=== PATIENT | female | born 1975 | race African-American/Black ===

== ENCOUNTER 2016-12-01 11:07 | Emergency (ER) | payer BC ==
[2016-12-01 11:15] VITALS: TEMP 98.4; BMI 29.5
--- NOTE | 2016-12-01 11:30 | EDPRACDOC ---
[id number] Provider: 12/01/16 11:20 Information Source: Patient Mode of Arrival: Car Home Medications: Home Medications Lisinopril [Prinivil, Zestril] 5 mg PO DAILY 02/09/13 Aspirin [Aspirin EC] 81 mg PO DAILY 12/01/16 Allergies/Adverse Reactions: Allergies Allergy/AdvReac Type Severity Reaction Status Date / Time No Known Allergies Allergy Verified 12/01/16 11:15 - History of Present Illness Onset: 2 DAYS HPI: LEFT SIDED CHEST PAIN, 2 DAYS, WORSE WITH BREATHING. PAIN 5/10 WITH INSPIRATION. NONSMOKER. PT HAS HTN. TREATING CHOL WITH DIET. NO DIABETES. NO AR IN PARENTS. PT REPORTS SIMILAR CHEST PAIN EVERY YEAR AT THIS TIME BEFORE GETTING BRONCHITIS. ED Past Medical History - Patient Medical History Cardiac History: Reports: Hypertension Systemic History: Denies: Cancer Surgical History: Reports: Hysterectomy EDM Review of Systems - Review of Systems ROS Negative Except as Marked: Yes All systems reviewed and were negative except as marked Respiratory: No Symptoms Reported Gastrointestinal: No Symptoms Reported Genitourinary: No Symptoms Reported - Physical Exam Constitutional: Alert (Awake), No apparent distress Oriented to: Time, Person, Place Last recorded Vital Signs: Last Vital Signs Temp 98.4 F 12/01/16 11:08 Pulse 77 12/01/16 11:08 Resp 18 12/01/16 11:08 BP 125/80 12/01/16 11:08 Pulse Ox 100 12/01/16 11:08 Oxygen Pulse Oxygen Saturation 100 O2 Device Oxygen Flow Rate Fraction of Inspired Oxygen ( FIO2) - HEENT Head: Normal ( normocephalic) Eye Exam: Normal (PERRL, EOMI, Sclera white) Oropharynx: Normal (Pharynx:Moist without exudate,Gums-no swelling) Nose: No Symptoms Reported (septum midline) Neck: Normal (FROM, trachea at midline) - Respiratory/Cardiovascular Respiratory: Normal - CTA (BBS clear to auscultation without adventitious sounds ) Cardiovascular: Normal (RRR without murmur, gallop or rub) - GI Auscultation: Normal (NABS) Palpation: Normal (Soft,No rebound or guarding, non distended) Tenderness: Non tender Omer's Sign: Negative - Musculoskeletal Back: Normal (Non-Tender) Extremities: Normal (Normal tone, Pulses 2+ No cyanosis or edema, FROM) - Integumentary Skin: Normal, Warm, Dry Lymphatics: Normal (no adenopathy) - Neurologic Memory Impaired: Normal Motor Function: Normal (Normal tone, Pulses 2+ No cyanosis or edema, FROM) Cranial Nerve: Normal (CN II-X11 intact sensation, strength 5/5) Cerebellar: Normal Mood Description: Normal Perception: Normal ED Chest Pain Exam - Respiratory/Cardiovascular Chest Palpation: Tender, Reproduces Pain (LEFT ANTERIOR CHEST WALL) - Action ASA given in the ED: No - Results 12/01/16 11:25 12/01/16 11:25 - EKG EKG #1 EKG Time: 11:10 -: Yes EKG interpreted by me Rate: bpm: 74 Fisher: Normal Rhythm: NSR Block: None Hypertrophy: None ST: Normal Comments: NORMAL EKG Decision Time to Discharge: 13:24 - Departure Yes I personally saw and evaluated the patient. Disposition: Home Condition: Stable Final Diagnosis: Chest wall pain Instructions: Chest Wall Pain Education/Counseling Given To: Patient Education/Counseling Given Regarding: Diagnosis Referrals: Fatemeh Rueda MD [Primary Care Provider] - One Week Additional Instructions: MOTRIN 600 THREE TIMES DAILY FOR 5 DAYS.
[2016-12-01 11:47] LABS: AUTOMATED BASOPHIL 0.5 % (0-2); AUTOMATED EOSINOPHIL 0.5 % (0-5); AUTOMATED LYMPH 31.4 % (17-44); AUTOMATED MONOCYTE 9.2 % (3-10); AUTOMATED NEUTROPHIL 58.4 % (45-76); MPV 8.7 fL (7.4-10.4)
[2016-12-01 11:59] LABS: BLOOD UREA NITROGEN 14 MG/DL (7-17); CALCIUM 9.2 MG/DL (8.4-10.2); CALCULATED OSMOLALITY 269 MOs/Kg (270-290); CHLORIDE 106 mEq/L (98-107); GLUCOSE 80 MG/DL (70-99); SODIUM LEVEL 140 mEq/L (137-146); TOTAL PROTEIN 8.5 G/DL (6.3-8.2)
--- NOTE | 2016-12-01 13:10 | DIRPT ---
CLINICAL DATA: Left-sided chest pain. EXAM: PORTABLE CHEST 1 VIEW COMPARISON: None. FINDINGS: Cardiomediastinal silhouette is normal. Mediastinal contours appear intact. There is no evidence of focal airspace consolidation, pleural effusion or pneumothorax. Osseous structures are without acute abnormality. Soft tissues are grossly normal. IMPRESSION: No active disease. Electronically Signed By: Maddison Treviño M.D. On: 12/01/2016 13:08
[2016-12-01 13:51] VITALS: BP 136/74; PULSE 75
== END 2016-12-01 13:51 | disposition home or self-care (01) ==
LOC: ED 11:07
DX: R07.89 Other chest pain (principal)
CPT/HCPCS: 36415; 71010; 80053; 84484; 85025; 85610; 85730; 93005; 99283